=== PATIENT | female | born 1945 | race Caucasian/White ===

== ENCOUNTER 2023-11-24 18:57 | Emergency (ER) | payer MEDICARE, BC, SELFPAY ==
[2023-11-24 19:08] VITALS: BP 226/79; BMI 22.3
--- NOTE | 2023-11-24 19:13 | ED.GENMED ---
History of Present Illness
General
Chief Complaint: Blood Pressure Problem
Source: patient, records, family and ambulance crew
Exam Limitations: none
Time Seen by Provider: 11/24/23 19:02
Nursing documentation reviewed up to this point in time: agreed with
History of Present Illness
History of Present Illness:
Patient is a 78-year-old female who was sent from urgent care for possible [place] after going there because her blood pressure was up. Patient denies headache, visual or speech difficulties. Patient denies any focal weakness or ataxia. Patient denies
any chest pain, shortness of breath, diaphoresis or palpitations. Patient denies any GI or symptoms. Patient denies any peripheral edema. Patient's blood pressure was found to be over 200 systolic but a 80 diastolic. Patient is under
treatment for hypertension.
Past History
Past History
ED Past Medical History: CAD, HTN, Hypercholesterolemia, [place], Hypothyroidism, Psychiatric and Other (Glaucoma)
ED Past Surgical History: Cardiac (PTCA with stent)
Patient has exhibited threatening behavior?: No
PSI?: No
Social History
Tobacco: Former smoker
Alcohol: None
Personal:
Living: alone
Employment: Retired
Family History
Family History: Other (Noncontributory)
Review of Systems
Review of Systems
All Other Systems: ROS reviewed and negative except as documented in HPI and ROS
Constitutional: Reports no symptoms
EENT: Reports no symptoms
Respiratory: Reports no symptoms
Cardiac: Reports no symptoms
ABD/GI: Reports no symptoms
: Reports no symptoms
Musculoskeletal: Reports no symptoms
Skin: Reports no symptoms
Neurological: Reports no symptoms
Hematologic/Lymphatic: Reports no symptoms
Psychiatric: Reports no symptoms
Phy Exam
Physical Exam
Physical Exam:
Physical Exam
General: No apparent distress, alert and appropriate, well nourished, well hydrated
HENT: Normocephalic, supple with no lymphadenopathy, no thyromegaly
Eyes: Clear sclera, conjuctiva without injection
Heart: Regular rhythm and rate. No S3, S4. No murmur. No NVD, bruit
Lungs: No respiratory distress, no stridor, lung sounds clear and equal bilaterally
Abdomen: Soft, nontender, no organomegaly, no CVA tenderness, BS good
Neuro: Alert and usual mental status, CN II - XII intact, no motor focality, no cerebellar dysfunction
Skin: no rash
Psychiatric: well kept. interactive and cooperative
Extremities: No edema, cyanosis, tenderness
Course
Orders/Labs/Results
Orders:
Orders
11/24/23 19:11
Amlodipine [Norvasc] 5 mg PO NOW STA
Furosemide [Lasix] 40 mg IV NOW STA
11/24/23 19:16
BNP [NT-proBNP] Urgent
Basic Metabolic Panel Urgent
Complete Blood Count/With Diff Urgent
Troponin I Urgent
11/24/23 20:27
Comprehensive Metabolic Panel Urgent
Abnormal Lab Results
11/24/23 11/24/23
19:16 20:27
Hct 36.9 L %
(37.0-47.0)
RDW 14.6 H %
(11.5-14.5)
Plt Count 108 L 10^3/uL
(130-400)
BUN 25 H mg/dl 25 H mg/dl
(7-17) (7-17)
AST 45 H U/L
(14-36)
11/24/23 19:16
11/24/23 20:27
Vital Signs
Initial and Last Documented VS:
Initial Vital Signs
Temp Pulse Resp BP Pulse Ox
98 F 64 13 226/79 98
11/24/23 19:08 11/24/23 19:08 11/24/23 19:08 11/24/23 19:08 11/24/23 19:08
Last Documented Vital Signs
Temp Pulse Resp BP Pulse Ox
98 F 62 23 205/72 98
11/24/23 19:08 11/24/23 20:01 11/24/23 20:01 11/24/23 20:01 11/24/23 20:01
*Radiology
Radiology exam reviewed: other (na)
*Pulse Oximetry
Patient hypoxic: no
*EKG
Interpreted by ED Provider?: Yes
EKG Intrepretation Date: 11/24/23
EKG Intrepretation Time: 19:19
Interpretation: abnormal
Comparison EKG: changes noted
Heart Rate: 60
Rate: normal
Rhythm: sinus
[place]: left axis deviation
Interval: normal interval
QRS Pattern: left bundle branch block and poor R-wave progression
Ischemia: no ischemia
*Brake Engineer Interpretation
Rate: normal
Interpretation: normal
Heart Rate: 60
Rhythm: sinus
*Critical Care Note
Total Time (30-74mins, 75-104mins- exclusive of procedures): Not Applicable
ED Attending Note
-
Portions of this chart may have been created with voice recognition software.� Occasional wrong word or��sound alike� substitutions may have occurred due to the inherent limitations of voice recognition software.
Discharge Plan
Departure
Patient Disposition: Home (Routine Discharge)
Date of Disposition: 11/24/23
Time of Disposition: 21:09
Patient with high blood pressure during this ER visit?: Yes
Condition: Good
Covid-19: Not Applicable
Discharge Problem:
Hypertension
Instructions: High Blood Pressure (DC), BLOOD PRESSURE
Prescriptions:
New
amlodipine 5 mg tablet
5 mg PO DAILY Qty: 30 0RF
No Action
losartan 50 MG tablet
75 mg PO DAILY@1000
atorvastatin 40 MG tablet
40 mg PO DAILY@1000
aspirin 81 MG tablet,delayed release (DR/EC)
81 mg PO DAILY@1000
latanoprost 1 DROP drops
1 drp BOTH EYES HS
ondansetron HCl 4 MG tablet
4 mg PO TIDPRN PRN (Reason: nausea/vomiting)
nitroglycerin 0.4 MG tablet, sublingual
0.4 mg sublingual [id number] PRN (Reason: chest pain)
mirtazapine 30 mg tablet,disintegrating
30 mg PO DAILY@1000
levothyroxine 100 mcg tablet
100 mcg PO DAILY@1000
sertraline 50 mg tablet
75 mg PO DAILY@1000
carvedilol phosphate 20 mg capsule, ER multiphase 24 hr
20 mg PO DAILY@1000
Referrals:
Tyrone Dukes MD [Family Provider] - Follow up in 2-3 days
Interventions
Interventions:
*Risk Screen - Suicide Last Done: 11/24/23 19:08
*General Assessment Last Done: 11/24/23 19:08
*Neglect/Abuse Screening Last Done: 11/24/23 19:08
*ED COVID-19 Vaccine History Last Done: 11/24/23 19:08
Discharge Date and Time
Print Language: ARMENIAN
[2023-11-24] MEDS: LASIX 40 MG IV (19:18)
[2023-11-24] MEDS: NORVASC 5 MG PO (19:21)
[2023-11-24 19:38] LABS: % Basophils 0.9 % (0-2); % Eosinophils 1.2 % (0-6); % Immature Granulocytes 0.3 % (0-0.5); % Lymphocytes 32.8 % (20.5-51.1); % Neutrophils 56.8 % (42.2-75.2); Absolute Basophils 0.1 10^3/uL (0-0.2); Absolute Eosinophils 0.1 10^3/uL (0-0.7); Absolute Lymphocytes 1.9 10^3/uL (1.2-3.4); Absolute Monocytes 0.5 10^3/uL (0.1-0.6); Absolute Neutrophils 3.3 10^3/uL (1.4-6.5); Hematocrit 36.9 % (37.0-47.0); Hemoglobin 12.4 g/dL (12.0-16.0); Mean Corp Hgb Conc. 33.6 g/dL (33.0-37.0); Mean Corpuscular Hgb 28.8 pg (27.0-31.0); Mean Corpuscular Volume 85.8 fL (81.0-99.0); Mean Platelet Volume 10.1 fL (7.4-10.4); Nucleated Red Blood Cells % 0 %; Platelet Count 108 10^3/uL (130-400); Red Cell Dist. Width 14.6 % (11.5-14.5); White Blood Cell Count 5.7 10^3/uL (4.8-10.8)
[2023-11-24 19:41] VITALS: BP 154/82
[2023-11-24 19:49] LABS: Blood Urea Nitrogen 25 mg/dl (7-17); Estimated Creatinine Clearance 48 ml/min; Glucose 91 mg/dl (70-99); Sodium 141 mmol/L (135-145); eGFR > 60.00
[2023-11-24 19:50] LABS: Calcium 9.4 mg/dl (8.4-10.2); Carbon Dioxide 26 mmol/L (22-30); Chloride 107 mmol/L (98-107)
[2023-11-24 19:51] LABS: NT-proBNP 776 pg/ml; Troponin I < 0.012 ng/ml
[2023-11-24 20:01] VITALS: BP 205/72
[2023-11-24 20:30] VITALS: BP 159/71
[2023-11-24 20:52] LABS: ALT (SGPT) 34 U/L (0-35); AST (SGOT) 45 U/L (14-36); Albumin 4.5 g/dl (3.5-5.0); Alkaline Phosphatase 102 U/L (38-126); Blood Urea Nitrogen 25 mg/dl (7-17); Calcium 9.8 mg/dl (8.4-10.2); Carbon Dioxide 30 mmol/L (22-30); Chloride 103 mmol/L (98-107); Estimated Creatinine Clearance 48 ml/min; Glucose 96 mg/dl (70-99); Sodium 144 mmol/L (135-145); Total Bilirubin 0.7 mg/dl (0.2-1.3); Total Protein 7.5 g/dl (6.3-8.2); eGFR > 60.00
[2023-11-24 21:00] VITALS: BP 153/87
[2023-11-24 21:30] VITALS: BP 164/63
== END 2023-11-24 23:03 | disposition home or self-care (01) ==
LOC: EMR 18:57
PROVIDERS: EMERGENCY PHYSICIAN Emergency Medicine; FAMILY PHYSICIAN Internal Medicine
DX: I10 Essential (primary) hypertension (principal); I44.7 Left bundle-branch block, unspecified; I25.10 Atherosclerotic heart disease of native coronary artery without angina pectoris; E78.00 Pure hypercholesterolemia, unspecified; E03.9 Hypothyroidism, unspecified; H40.9 Unspecified glaucoma; F03.90 Unspecified dementia, unspecified severity, without behavioral disturbance, psychotic disturbance, mood disturbance, and anxiety; G43.909 Migraine, unspecified, not intractable, without status migrainosus; K57.92 Diverticulitis of intestine, part unspecified, without perforation or abscess without bleeding; K21.9 Gastro-esophageal reflux disease without esophagitis; F41.9 Anxiety disorder, unspecified; F32.A Depression, unspecified; I25.2 Old myocardial infarction; Z79.82 Long term (current) use of aspirin; Z95.5 Presence of coronary angioplasty implant and graft; Z87.891 Personal history of nicotine dependence; Z90.49 Acquired absence of other specified parts of digestive tract; Z88.5 Allergy status to narcotic agent
CPT/HCPCS: 99284; 96374; 80048; 80053; 83880; 84484; 85025; 93005

== ENCOUNTER 2024-10-02 15:38 | Emergency (ER) | payer MEDICARE, BC, SELFPAY ==
[2024-10-02 15:55] VITALS: BP 192/67
[2024-10-02 16:23] LABS: Hematocrit 38.4 % (37.0-47.0); Hemoglobin 12.6 g/dL (12.0-16.0); Mean Corp Hgb Conc. 32.8 g/dL (33.0-37.0); Mean Corpuscular Volume 88.5 fL (81.0-99.0); Nucleated Red Blood Cells % 0 %; Platelet Count 115 10^3/uL (130-400); Red Cell Dist. Width 15.5 % (11.5-14.5)
[2024-10-02 16:41] LABS: ALT (SGPT) 21 U/L (0-35); AST (SGOT) 25 U/L (14-36); Albumin 4.2 g/dl (3.5-5.0); Alkaline Phosphatase 98 U/L (38-126); Blood Urea Nitrogen 19 mg/dl (7-17); Calcium 9.4 mg/dl (8.4-10.2); Carbon Dioxide 26 mmol/L (22-30); Chloride 108 mmol/L (98-107); Glucose 106 mg/dl (70-99); Potassium 3.9 mmol/L (3.5-5.1); Sodium 140 mmol/L (135-145); Total Protein 6.9 g/dl (6.3-8.2); eGFR > 60.00
[2024-10-02 20:15] VITALS: BP 208/63
--- NOTE | 2024-10-02 20:30 | ED.GENMED ---
History of Present Illness
General
Chief Complaint: Head Injury
Time Seen by Provider: 10/02/24 20:29
Nursing documentation reviewed up to this point in time: agreed with
History of Present Illness
History of Present Illness:
79-year-old female brought to the ER by her caregiver for evaluation of an unwitnessed fall that occurred over the weekend. Patient is not on any blood thinners. She is pleasantly confused with a history of dementia and unable to provide any
relevant history. Caregiver reports that she has been acting like herself. They deny any fevers or difficulty with eating or drinking. Patient has been able to ambulate with a steady gait and no assistance, similar to her baseline. They were
concerned given presence of bruising and laceration to the face prompting visit to the ER today. Patient has no prior history of recurrent urinary tract infections.
Past History
Past History
ED Past Medical History: CAD, HTN, Hypercholesterolemia, [place], Hypothyroidism, Psychiatric and Other (Glaucoma)
ED Past Surgical History: Cardiac (PTCA with stent)
Patient has exhibited threatening behavior?: No
PSI?: No
Social History
Tobacco: Former smoker
Alcohol: None
Personal:
Living: alone
Employment: Retired
Family History
Family History: Other (Noncontributory)
Review of Systems
Review of Systems
Allergies reviewed?: Yes
Phy Exam
Physical Exam
Physical Exam:
Patient is awake, alert, elderly, appears in no acute distress, healing appearing ecchymosis present left periorbital region with a 1 cm laceration with eschar present in the lateral aspect of the left eyebrow, no crepitus on palpation of the facial
bones, PERRL, EOMI, tongue is midline, no facial asymmetry noted, speech is clear, no pain on active range of motion of the cervical spine, moving all extremities symmetrically without focal deficit, intact sensation to light touch x 4 extremities,
GCS is 14 due to confusion
Course
Orders/Labs/Results
Orders:
Orders
10/02/24 15:59
CT Head W/o Iv Contrast Urgent
Comment:
Reason For Exam: Fall, + headstrike
10/02/24 16:08
Complete Blood Count/With Diff Urgent
Comprehensive Metabolic Panel Urgent
10/02/24 16:09
ECG [Electrocardiogram (*1)] Urgent
Reason for Study: Syncope
EKG- Treatment ONCE
10/02/24 18:35
CT Facial Bones W/o Iv Contras Urgent
Comment:
Reason For Exam: Trauma
Abnormal Lab Results
10/02/24
16:08
MCHC 32.8 L g/dL
(33.0-37.0)
RDW 15.5 H %
(11.5-14.5)
Plt Count 115 L 10^3/uL
(130-400)
Chloride 108 H mmol/L
(98-107)
BUN 19 H mg/dl
(7-17)
Glucose 106 H mg/dl
(70-99)
10/02/24 16:08
10/02/24 16:08
Labs are very reassuring with normal white blood count, preserved kidney function
Vital Signs
Initial and Last Documented VS:
Initial Vital Signs
Temp Pulse Resp BP Pulse Ox
97.9 F 65 18 192/67 97
10/02/24 15:55 10/02/24 15:55 10/02/24 15:55 10/02/24 15:55 10/02/24 15:55
Last Documented Vital Signs
Temp Pulse Resp BP Pulse Ox
97.9 F 65 18 195/64 98
10/02/24 15:55 10/02/24 15:55 10/02/24 15:55 10/02/24 20:42 10/02/24 20:42
MDM/Problems Addressed
Differential Diagnosis Includes:
Differential diagnosis to consider but not limited to occult intracranial hemorrhage, occult skull fracture, facial bone fracture along with other etiologies considered
Chronic conditions affecting care:
Dementia, advanced age
*Radiology
Radiology exam reviewed: radiology read reviewed (I reviewed CT head and face results 'IMPRESSION: No acute intracranial abnormality. No findings to suggest recent facial bone fracture. Minimal opacification of the right mastoid air cells, most
likely chronic.')
*Pulse Oximetry
SaO2: 97
Oxygen Mode of Delivery: Room air
Patient hypoxic: no
*Critical Care Note
Total Time (30-74mins, 75-104mins- exclusive of procedures): Not Applicable
Update Note
Update Note:
Patient with stable appearance throughout time of observation in the waiting room and emergency department. I discussed with patient and caregiver present at bedside continued supportive treatment of wounds as they are to old to consider closure
revision. I would suspect that they will heal well regardless. I discussed with them strict return precautions. I reviewed with them very reassuring labs in the emergency department. We discussed possibility of urinary tract infection related to
the fall-patient has no significant history of recurrent urinary tract infection. They feel comfortable with plan for discharge home and had no questions prior to leaving the department.
ED Attending Note
-
Portions of this chart may have been created with voice recognition software.� Occasional wrong word or��sound alike� substitutions may have occurred due to the inherent limitations of voice recognition software.
Discharge Plan
Departure
Patient Disposition: Home (Routine Discharge)
Date of Disposition: 10/02/24
Time of Disposition: 20:36
Patient with high blood pressure during this ER visit?: Yes
Discharge Problem:
Head injury, Facial laceration, Contusion of face
Instructions: Head Injury in Adults (DC), Wound care - ED discharge instructions, BLOOD PRESSURE
Prescriptions:
No Action
losartan 50 MG tablet
75 mg PO DAILY@1000
atorvastatin 40 MG tablet
40 mg PO DAILY@1000
aspirin 81 MG tablet,delayed release (DR/EC)
81 mg PO DAILY@1000
latanoprost 1 DROP drops
1 drp BOTH EYES HS
ondansetron HCl 4 MG tablet
4 mg PO TIDPRN PRN (Reason: nausea/vomiting)
nitroglycerin 0.4 MG tablet, sublingual
0.4 mg sublingual [id number] PRN (Reason: chest pain)
mirtazapine 30 mg tablet,disintegrating
30 mg PO DAILY@1000
levothyroxine 100 mcg tablet
100 mcg PO DAILY@1000
sertraline 50 mg tablet
75 mg PO DAILY@1000
carvedilol phosphate 20 mg capsule, ER multiphase 24 hr
20 mg PO DAILY@1000
amlodipine 5 mg tablet
5 mg PO DAILY Qty: 30 0RF
Activity Restrictions/Additional Instructions:
Continue your current medications. Please wash area of injury with soap and water twice daily and keep moisturized with either Vaseline or bacitracin antibiotic ointment as available [id number]. Return to the ER for any concerns
Interventions
Interventions:
*Risk Screen - Suicide Last Done: 10/02/24 15:55
*General Assessment Last Done: 10/02/24 20:47
*Neglect/Abuse Screening Last Done: 10/02/24 20:47
*ED- Fall Risk Assessment Last Done: 10/02/24 20:47
*Nursing Disposition Last Done: 10/02/24 20:47
ED- Neurological Assessment Last Done: 10/02/24 20:30
ED-Skin Assessment Last Done: 10/02/24 20:30
Discharge Date and Time
Discharge Date/Time: 10/02/24 20:50
Print Language: [id number]
[2024-10-02 20:42] VITALS: BP 195/64
== END 2024-10-02 20:50 | disposition home or self-care (01) ==
LOC: EMR 15:38
PROVIDERS: Student in an Organized Health Care Education/Training Program; EMERGENCY PHYSICIAN Emergency Medicine; FAMILY PHYSICIAN Internal Medicine
DX: S01.81XA Laceration without foreign body of other part of head, initial encounter (principal); S00.83XA Contusion of other part of head, initial encounter; W19.XXXA Unspecified fall, initial encounter; E78.00 Pure hypercholesterolemia, unspecified; E03.9 Hypothyroidism, unspecified; F03.90 Unspecified dementia, unspecified severity, without behavioral disturbance, psychotic disturbance, mood disturbance, and anxiety; I10 Essential (primary) hypertension; I25.10 Atherosclerotic heart disease of native coronary artery without angina pectoris; Z87.891 Personal history of nicotine dependence; Z95.5 Presence of coronary angioplasty implant and graft
CPT/HCPCS: 99284; 70450; 70486; 80053; 85025; 93005